=== PATIENT | female | born 1955 | race Hispanic/Latino ===

== ENCOUNTER → 2020-04-10 | Outpatient (CLI) | payer OTHER | END | disposition home or self-care (01) | LOC: OIH 07:32 | PROVIDERS: ATTEND Internal Medicine | DX: M16.0 Bilateral primary osteoarthritis of hip (principal); M19.042 Primary osteoarthritis, left hand; M19.041 Primary osteoarthritis, right hand; M85.80 Other specified disorders of bone density and structure, unspecified site | CPT/HCPCS: 73521 ==

== ENCOUNTER 2022-05-05 07:33 | Emergency (ER) | payer OTHER ==
[~2022-05-05] VITALS: Ht 149.9 cm; Wt 73.5 kg
[2022-05-05] MEDS ORDERED: ONDANSETRON 4MG INJ ONE (07:57)
[2022-05-05 08:01] LABS: BASOPHILS % (AUTO) 0.5 % (0.0-5.0); EOSINOPHILS % (AUTO) 0.4 % (0.0-8.0); HEMATOCRIT 45.1 % (36-48); LYMPHOCYTES % (AUTO) 9.6 % (21.0-51.0); MEAN CORPUSCULAR HEMOGLOBIN 28.3 pg (27.0-33.0); MEAN CORPUSCULAR HGB CONC 31.7 g/dL (32.0-36.0); MEAN CORPUSCULAR VOLUME 89.1 fL (79-99); MONOCYTES % (AUTO) 6.1 % (3.0-13.0); NEUTROPHILS % (AUTO) 82.8 % (40.0-77.0); PLATELET COUNT (AUTO) 183 K/uL (130-400); RED BLOOD CELL COUNT(AUTO) 5.06 MIL/uL (4.00-5.50); RED CELL DISTRIBUTION WIDTH 13.6 % (11.0-15.5); WHITE BLOOD COUNT (AUTO) 9.6 K/uL (4.8-10.8)
[2022-05-05 08:18] LABS: ALANINE AMINOTRANSFERASE 25 U/L (12-78); ALBUMIN 4.1 g/dL (3.5-5.0); ASPARTATE AMINOTRANSFERASE 18 U/L (10-37); CARBON DIOXIDE 31 mmol/L (21-32); CHLORIDE 102 mmol/L (101-111); CREATININE 0.8 mg/dL (0.5-1.5); GLOMERULAR FILTR. RATE CALC 81 mL/min (>90); GLUCOSE,RANDOM 166 mg/dL (70-105); POTASSIUM 3.3 mmol/L (3.5-5.1); SODIUM SERUM 139 mmol/L (136-145); UREA NITROGEN, BLOOD 19 mg/dL (7-18)
[2022-05-05] MEDS ORDERED: KETOROLAC 30MG VIAL (30MG/ML) ONE (08:19)
[2022-05-05 08:21] LABS: BILIRUBIN,URINE NEGATIVE (NEGATIVE); COLOR,URINE YELLOW (YELLOW); GLUCOSE, URINE (UA) TRACE mg/dL (NEGATIVE); KETONES,URINE NEGATIVE (NEGATIVE); LEUKOCYTE ESTERASE ,URINE 250 Leu/uL (NEGATIVE); NITRATE,URINE NEGATIVE (NEGATIVE); OCCULT BLOOD,URINE LARGE (NEGATIVE); PH,URINE 5.5 (5.0-8.0); PROTEIN,URINE 100 mg/dL (NEGATIVE); UROBILINOGEN,URINE 0.2 mg/dL (0.2-1.0)
[2022-05-05 08:22] LABS: LIPASE < 50 U/L (114-286)
[2022-05-05] MEDS ORDERED: 0.9%NACL 1000ML 1,000 ML IV ONE (08:30)
[2022-05-05] MEDS ORDERED: KETOROLAC 30MG VIAL (30MG/ML) IVP ONE (08:30)
[2022-05-05 08:33] LABS: BACTERIA,URINE MOD /HPF (None Seen); CALCIUM OXALATE CRYSTALS,UR MOD /LPF (None Seen); MUCUS,URINE FEW LPF (None Seen); RBC,URINE TNTC /HPF (0-1); SQUAMOUS EPITHELIAL CELL,UR FEW /HPF (0-2); WBC,URINE 26-50 /HPF (0-1)
[2022-05-05 08:35] LABS: APPEARANCE,URINE HAZY (CLEAR)
[2022-05-05] MEDS ORDERED: LOSA1TAB37 PO (08:38)
[2022-05-05] MEDS ORDERED: SEMA0.253 SQ (08:38)
[2022-05-05] MEDS ORDERED: METF-526 PO (08:42)
[2022-05-05] MEDS ORDERED: HYDR200T4 PO (08:42)
[2022-05-05] MEDS ORDERED: CELE100C97 PO (08:42)
[2022-05-05] MEDS ORDERED: MV-M1TAB20 PO (08:42)
[2022-05-05 09:59] VITALS: BP 123/58
[2022-05-05] MEDS ORDERED: CEPH500B PO (10:13)
[2022-05-05] MEDS ORDERED: KETO10TA2 PO (10:13)
[2022-05-05] MEDS ORDERED: TAMS-1 PO (10:13)
== END 2022-05-05 10:27 | disposition home or self-care (01) ==
LOC: EDH 07:33
DX: N20.1 Calculus of ureter (principal); E11.9 Type 2 diabetes mellitus without complications; E78.00 Pure hypercholesterolemia, unspecified; I10 Essential (primary) hypertension; Z79.1 Long term (current) use of non-steroidal anti-inflammatories (NSAID); Z79.84 Long term (current) use of oral hypoglycemic drugs; Z79.899 Other long term (current) drug therapy; Z85.3 Personal history of malignant neoplasm of breast
CPT/HCPCS: 99285; 74176; 96374; 96361; 96375; 80053; 83690; 85025; 87077; 87088; 87186; 81001; 36415; J7030; J2405; J1885

== ENCOUNTER 2023-06-04 15:57 | Emergency (ER) | payer OTHER ==
[~2023-06-04] VITALS: Ht 147.3 cm; Wt 73.0 kg
[~2023-06-04 15:57] MED LIST: CELE-146 PO; CEPH500B PO; HYDR200T75 PO; KETO10TA2 PO; LOSA1TAB37 PO; METF-526 PO; MV-M1TAB20 PO; SEMA0.253 SQ; TAMS-1 PO
[2023-06-04 16:03] VITALS: BP 132/84; PULSE 86; RESP 18
[2023-06-04] MEDS: CYCLOBENZAPRINE HCL 10 MG TABLET PO ONE (17:39)
[2023-06-04] MEDS: KETOROLAC 60 MG VIAL (30MG/ML) IM ONE (17:48)
[2023-06-04] MEDS: ONDANSETRON ODT 4MG TAB ONE (17:50)
[2023-06-04] MEDS: ONDANSETRON ODT 4MG TAB SL ONE (17:50)
[2023-06-04] MEDS ORDERED: CYCL-309 PO (18:18)
[2023-06-04] MEDS ORDERED: IBUP-2077 PO (18:18)
== END 2023-06-04 19:09 | disposition home or self-care (01) ==
LOC: EDH 15:57
DX: S20.219A Contusion of unspecified front wall of thorax, initial encounter (principal); I10 Essential (primary) hypertension; E78.00 Pure hypercholesterolemia, unspecified; E11.9 Type 2 diabetes mellitus without complications; Z87.442 Personal history of urinary calculi; Z85.3 Personal history of malignant neoplasm of breast; V43.52XA Car driver injured in collision with other type car in traffic accident, initial encounter; Y93.89 Activity, other specified; Y92.89 Other specified places as the place of occurrence of the external cause; Y99.8 Other external cause status
CPT/HCPCS: 99283; 71045; 96372; J1885

== ENCOUNTER → 2024-10-25 | Outpatient (CLI) | payer OTHER ==
[~2024-10-25] MED LIST changes: +CYCL-309 PO; +IBUP-2077 PO; -TAMS-1 PO; +TAMS-55 PO
--- NOTE | 2024-10-27 13:43 | HMCIMG ---
CLINICAL INDICATION: Age-related osteoporosis without current pathological fracture COMPARISON: None available TECHNIQUE: Bone densitometry is performed of the lumbar spine and left hip. FINDINGS: Total BMD of lumbar spine is 0.847 g/cm2 with a T-score of -1.8 and Z-score is 0.2. Total BMD of left hip is 0.904 g/cm2 with a T-score of -0.4 and Z-score is 1.0. FRAX SCORE: The 10 year fracture risk for a major osteoporotic fracture and hip fracture 6% IMPRESSION: 1. Osteopenia lumbar spine and left hip 2. I would recommend follow-up in 13 months World Health Organization criteria for BMD interpretation classify patients as Normal (T-score at or above -1.0), Osteopenic (T-score between -1.0 and -2.5), or Osteoporotic (T-score at or below -2.5). FRAX SCORE: A. All treatment decisions require clinical judgment and consideration of individual patient factors, including patient preferences, comorbidities, previous drug use, risk factors not captured in the FRAX model (e.g., frailty, falls, vitamin D deficiency, increased bone turnover, interval significant decline in bone density) and possible asvmm-wg-lafe-estimation of fracture risk by FRAX. B. In addition, the NOF Guide recommends that FDA-approved medical therapies be considered in postmenopausal women and men age greater than or equal to 50 years with a: i. Hip or vertebral (clinical or morphometric) fracture. ii. T-score of less than or equal to -2.5 at the spine or hip. iii. Ten-year fracture probability by FRAX of greater than or equal to 3% for hip fracture of greater than or equal to 20% for major osteoporotic fracture.
== END | disposition home or self-care (01) ==
LOC: RAH 09:23
PROVIDERS: ATTEND Nurse Practitioner Family
DX: M81.0 Age-related osteoporosis without current pathological fracture (principal); M85.89 Other specified disorders of bone density and structure, multiple sites
CPT/HCPCS: 77080

== ENCOUNTER 2024-12-24 19:38 | Emergency (ER) | payer OTHER ==
[~2024-12-24] VITALS: Ht 149.9 cm; Wt 71.2 kg
--- NOTE | 2024-12-24 19:47 | NUR ---
WARM BLANKETS PROVIDED
--- NOTE | 2024-12-24 19:54 | NUR ---
REPORT TO GUERDA COLUNGA
--- NOTE | 2024-12-24 19:58 | EKG ---
[facility] Test Date: 2024-12-24 Test Time: 19:56:53 Pat Name: EVIN HOBBS Department: ED Room: Gender: F Acute Care Physician: [id number] : 1955 Requested By: KATRINA WILLIAMSON Order Number: [id number] Reading MD: Constantino Reyes Measurements Intervals Rumsey Rate: 66 P: 55 VA: 128 QRS: 59 QRSD: 96 T: 9 QT: 438 QTc: 461 Interpretive Statements Sinus rhythm No previous ECG available for comparison Electronically Signed On 12-25-2024 20:01:16 [employer]CH[employer] by Constantino Reyes Please click the below link to view image of tracing.
[2024-12-24 20:03] VITALS: BP 130/68; PULSE 102; RESP 18; TEMP 98.4; O2SAT 97
[2024-12-24] MEDS: FAMOTIDINE 20MG VIAL IV ONE (20:17)
[2024-12-24 20:19] LABS: IMMATURE GRANULOCYTE ABSOLUTE 0.04 K/uL (0-1); NUCLEATED RED BLOOD CELLS 0.0 % (0.0-0.19); PLATELET COUNT (AUTO) 216 K/uL (130-400); RED BLOOD CELL COUNT(AUTO) 4.92 MIL/uL (4.00-5.50); RED CELL DISTRIBUTION WIDTH 13.6 % (11.0-15.5); WHITE BLOOD COUNT (AUTO) 9.2 K/uL (4.8-10.8)
--- NOTE | 2024-12-24 20:30 | ERN ---
General Chief Complaint: Abdominal Pain Stated Complaint: ABD PAIN Time Seen by MD: 19:45 Time Seen by Midlevel: 19:45 Source: patient History of Present Illness Initial Comments 69-year-old female presents to the emergency department with the nausea and vomiting that started 2 hours after eating. On arrival she now reports midepigastric abdominal pain that radiates to her back Allergies: Coded Allergies: No Known Drug Allergies (Unverified Allergy, Unknown, 05/05/22) Home Meds Active Scripts Ibuprofen (Ibuprofen 800 mg Tab) 800 Mg Tab, 800 MG PO Q8H PRN for fever or pain, #30 TAB 0 Refills Prov:YAJAIRA MONTOYA INFORMATION SECURITY ARCHITECT 06/04/23 Cyclobenzaprine HCl (Cyclobenzaprine HCl) 10 Mg Tablet, 10 MG PO TID for 5 Days, #15 TAB Prov:YAJAIRA MONTOYA INFORMATION SECURITY ARCHITECT 06/04/23 Cephalexin Monohydrate (Keflex) 500 Mg Cap, 500 MG PO BID for 7 Days, #14 CAP Prov:CASANDRA NARAYAN MD 05/05/22 Ketorolac Tromethamine (Ketorolac Tromethamine) 10 Mg Tablet, 10 MG PO TID PRN for PAIN LEVEL 1 TO 5 for 5 Days, #15 TAB Prov:CASANDRA NARAYAN MD 05/05/22 Tamsulosin HCl (Flomax) 0.4 Mg Cap.er.24h, 0.4 MG PO DAILY for 7 Days, #7 CAPSULE.DR Prov:CASANDRA NARAYAN MD 05/05/22 Reported Medications Celecoxib (Celecoxib) 100 Mg Capsule, 100 MG PO DAILY, CAP 05/05/22 Mv-Mn/Iron/FA/Herbal Cmplx#190 (Vitamin D3 Complete Caplet) 1 Each Tablet, 1 EACH PO DAILY, TAB 05/05/22 Hydroxychloroquine Sulfate (Hydroxychloroquine Sulfate) 200 Mg Tablet, 200 MG PO BID, TAB 05/05/22 Metformin HCl (Metformin HCl ER) 500 Mg Tab.er.24, 500 MG PO DAILY 05/05/22 Losartan/Hydrochlorothiazide (Losartan-Hctz 50-12.5 mg Tab) 1 Each Tablet, 1 EACH PO DAILY, TAB 05/05/22 Semaglutide (Wegovy) 0.25 Mg/0.5 Ml Pen.injctr, 0.25 MG SQ DAILY 05/05/22 Past Medical History Past Medical History: Cancer, Diabetes-Type II, High Cholesterol, Hypertension, Kidney Stone, Other Medical History Other: BREAST CA, RA Past Surgical History: Hysterectomy, Surgical History Other: PARTIAL LEFT MASTECTOMY Female( History) History: Not Applicable ROS Dictation CONSTITUTIONAL: Negative except for HPI HEAD/FACE: Negative except for HPI EENT: Negative except for HPI RESPIRATORY: Negative except for HPI GASTROINTESTINAL/ABDOMINAL: Negative except for HPI GENITOURINARY: Negative except for HPI MUSCULOSKELETAL: Negative except for HPI INTEGUMENTARY: Negative except for HPI NEUROLOGICAL/PSYCH: Negative except for HPI HEMATOLOGIC/LYMPHATIC: Negative except for HPI All Systems Negative, Except as noted above. 13 point review of systems assessed and all negative except for above. Physical Exam Physical Exam Dictation Vital Signs reviewed General Appearance: Alert, oriented x 3, mild distress secondary to abdominal pain, actively vomiting Head and Face: non-traumatic. Eyes: PERRL, pink conjunctivas, eyelid no trauma, anterior chamber with arcus senilis. Ears: Pinnas intact and no signs of trauma or erythema ear canals clear and no discharge TM no erythema Nose: No discharge, no bleeding. Oropharynx: Mouth normal, tongue pink, pharynx clear,no erythema, tonsils no exudates, no abscesses noted, mucous membrane moist Neck: Supple, non-tender, no thyromegaly, no masses, no JVD, no bruits Breast:Deferred Chest:No tenderness, no crepitus, no paradoxical movement, no retractions Lungs:Clear, well-ventilated, symmetric, no rales, no wheezing, no rhonchi, no stridor, good breath sounds bilaterally Heart: Regular rate, regular rhythm, no murmur, no gallops Vascular: no peripheral edema, Abdomen: Soft, positive bowel sounds, nondistended, no guarding, Midepigastric abdominal tenderness, no rebound, no masses no hepatomegaly, no splenomegaly, no Don's sign, no hernias. Rectal: Deferred Genital: Deferred Neurological: Normal speech, motor function intact, sensory function intact Musculoskeletal: Neck nontender, full range of motion, back nontender, full range of motion, Extremities: nontender, full range of motion Skin: Color pink, dry, no turgor, no rash, no lacerations, no abrasions, no contusions. Lymphatic: Deferred Results Laboratory and Microbiology Lab and Micro Result Laboratory Tests Test 12/24/24 20:13 12/24/24 20:50 White Blood Count 9.2 K/uL (4.8-10.8) Red Blood Count 4.92 MIL/uL (4.00-5.50) Hemoglobin 13.9 g/dL (12.0-16.0) Hematocrit 43.5 % (36-48) Mean Corpuscular Volume 88.4 fL (79-99) Mean Corpuscular Hemoglobin 28.3 pg (27.0-33.0) Mean Corpuscular Hemoglobin Concent 32.0 g/dL (32.0-36.0) Red Cell Distribution Width 13.6 % (11.0-15.5) Platelet Count 216 K/uL (130-400) Mean Platelet Volume 10.5 fL (7.5-10.5) Immature Granulocyte % (Auto) 0.4 % (0-1) Neutrophils (%) (Auto) 83.3 % (40.0-77.0) H Lymphocytes (%) (Auto) 9.0 % (21.0-51.0) L Monocytes (%) (Auto) 6.5 % (3.0-13.0) Eosinophils (%) (Auto) 0.5 % (0.0-8.0) Basophils (%) (Auto) 0.3 % (0.0-5.0) Neutrophils # (Auto) 7.6 K/uL (1.8-7.7) Lymphocytes # (Auto) 0.8 K/uL (1.0-4.8) L Monocytes # (Auto) 0.6 K/uL (0.1-1.0) Eosinophils # (Auto) 0.05 K/uL (0.00-0.70) Basophils # (Auto) 0.03 K/uL (0.00-0.20) Absolute Immature Granulocyte (auto 0.04 K/uL (0-1) Nucleated Red Blood Cells 0.0 % (0.0-0.19) White Cell Morphology Comment See comments Sodium Level 139 mmol/L (136-145) Potassium Level 3.2 mmol/L (3.5-5.1) L Chloride Level 102 mmol/L (101-111) Carbon Dioxide Level 27 mmol/L (21-32) Blood Urea Nitrogen 31 mg/dL (7-18) H Creatinine 0.9 mg/dL (0.5-1.0) Glomerular Filtration Rate Calc 69 mL/min (>90) Random Glucose 166 mg/dL (70-105) H Total Calcium 8.9 mg/dL (8.5-10.1) Total Bilirubin 0.4 mg/dL (0.2-1.0) Direct Bilirubin 0.1 mg/dL (0.0-0.3) Aspartate Amino Transf (AST/SGOT) 19 U/L (10-37) Alanine Aminotransferase (ALT/SGPT) 21 U/L (12-78) Alkaline Phosphatase 78 U/L (50-136) Troponin I High Sensitivity 7 ng/L (4-50) Total Protein 6.8 g/dL (6.0-8.3) Albumin 3.9 g/dL (3.5-5.0) Lipase 19 U/L (16-77) Urine Color LIGHT-YELLOW (YELLOW) Urine Appearance CLEAR (CLEAR) Urine pH 6.5 (5.0-8.0) Urine Specific [place] 1.022 (1.001-1.031) Urine Protein NEGATIVE mg/dL (NEGATIVE) Urine Glucose (UA) 200 mg/dL (NEGATIVE) H Urine Ketones 60 mg/dL (NEGATIVE) H Urine Occult Blood NEGATIVE (NEGATIVE) Urine Nitrate NEGATIVE (NEGATIVE) Urine Bilirubin NEGATIVE mg/dL (NEGATIVE) Urine Urobilinogen 0.2 mg/dL (0.2-1.0) Urine Leukocyte Esterase 75 Joanie/uL (NEGATIVE) H Urine RBC 6-10 /HPF (0-1) H Urine WBC 6-10 /HPF (0-1) H Urine Squamous Epithelial Cells RARE /HPF (0-2) Urine Bacteria RARE /HPF (None Seen) Labs Reviewed?: Yes MDM MDM: Differential diagnosis: Biliary colic, acute cholecystitis, pancreatitis There are no social concerns with this patient. Prescription drug management Prescriptions will include: Zofran, Pepcid, Toradol Medical management and examination interpretation discussions were had by me with other qualified healthcare professionals as indicated for the patient's care. ED Course Orders Procedure Category Date Status Time Vital Signs Per CPOE 12/24/24 Transmitted Routine 19:49 Saline Lock Iv CPOE 12/24/24 Transmitted 19:49 Cbc With Differential LAB 11/15/25 Complete 19:49 Lipase LAB 12/24/24 Complete 19:49 Urinalysis Profile LAB 12/24/24 Complete 19:49 12 Lead Ekg Tracing- EKG 12/24/24 Complete Technical 19:49 Troponin I High LAB 12/24/24 Complete Sensitivity 19:49 Basic Metabolic Panel LAB 12/24/24 Complete 19:49 Hepatic Function Panel LAB 12/24/24 Complete 19:59 Ondansetron 4mg Inj PHA 12/24/24 Complete (Zofran 4mg Inj) 20:00 Famotidine 20mg Vial PHA 12/24/24 Complete (Pepcid 20mg Vial) 20:00 Ct Abdomen/Pelvis CT 12/24/24 Resulted W/Contrast 19:59 Morphine 2mg Syg PHA 12/24/24 Complete (Morphine 2mg Syg) 20:30 Culture Urine REEMA 12/24/24 In Process 21:04 Iohexol (Omnipaque) PHA 12/24/24 Complete 21:21 Ketorolac PHA 12/24/24 Complete Tromethamine 15mg/Ml 23:00 Us Abdominal Ruq\Ltd US 12/24/24 Taken 22:38 Ketorolac PHA 12/24/24 Complete Tromethamine 15mg/Ml 22:40 Current Medications Medications (Trade) Dose Ordered Sig/Rico Route PRN Reason Start Time Stop Time Status Last Admin Dose Admin Famotidine (Pepcid 20mg Vial) 20 mg ONCE ONCE IV 12/24/24 20:00 12/24/24 20:02 DC 12/24/24 20:17 Iohexol (Omnipaque) 75 ml STK-MED ONCE IV 12/24/24 21:21 12/24/24 21:21 DC Ketorolac Tromethamine (toRADol) 15 mg ONCE ONCE IV 12/24/24 23:00 12/24/24 23:01 DC 12/24/24 22:54 Ketorolac Tromethamine (toRADol) 15 mg STK-MED ONCE .ROUTE 12/24/24 22:40 12/24/24 22:41 DC Morphine Sulfate (morPHINE 2MG SYG) 2 mg ONCE ONCE IVP 12/24/24 20:30 12/24/24 20:32 DC 12/24/24 20:48 Ondansetron HCl (zoFRAN 4MG INJ) 4 mg ONCE ONCE IVP 12/24/24 20:00 12/24/24 20:02 DC 12/24/24 20:17 Vital Signs Date Time Temp Pulse Resp B/P (MAP) Pulse Ox O2 Delivery O2 Flow Rate FiO2 12/24/24 20:03 98.4 102 18 130/68 97 Room Air* 0 21 12/24/24 19:41 98.8 64 18 158/68 100 Room Air DX & DISP Disposition: Discharge Departure Impression: Primary Impression: Biliary colic Condition: Stable Scripts Famotidine (Pepcid) 20 Mg Tablet 1 TAB PO BID for 10 Days, #20 TAB 0 Refills Prov: GUERDA KRAUS PAC 12/25/24 Ondansetron (Ondansetron Odt) 4 Mg Tab.rapdis 4 MG PO BID for 7 Days, #14 TAB Prov: GUERDA KRAUS 12/25/24 Ketorolac Tromethamine (Ketorolac Tromethamine) 10 Mg Tablet 1 TAB PO BID for pain for 5 Days, #10 TAB 0 Refills Prov: GUERDA KRAUS 12/25/24 Referrals: JONNY BAE (PCP) KIMBERLY GALAVIZ MD Time of Disposition: 00:01 I have reviewed the case, and I agree with, Diagnosis and Plan I performed the substantive portion of the visit. I have reviewed and per sonally made and approve the management plan that is documented in the note by myself or the RENAE. I acknowledge for responsibility for the patient's management plan. GUERDA KRAUS PAC Dec 24, 2024 20:30
[2024-12-24 20:31] LABS: CREATININE 0.9 mg/dL (0.5-1.0); GLOMERULAR FILTR. RATE CALC 69.0 mL/min (>90); GLUCOSE,RANDOM 166.0 mg/dL (70-105); SODIUM SERUM 139.0 mmol/L (136-145); UREA NITROGEN, BLOOD 31.0 mg/dL (7-18)
[2024-12-24 20:59] LABS: ASPARTATE AMINOTRANSFERASE 19.0 U/L (10-37); TOTAL PROTEIN, SERUM 6.8 g/dL (6.0-8.3)
[2024-12-24 21:02] LABS: ADD UA MICROSCOPIC YES; APPEARANCE,URINE CLEAR (CLEAR); GLUCOSE, URINE (UA) 200 mg/dL (NEGATIVE); LEUKOCYTE ESTERASE ,URINE 75 Leu/uL (NEGATIVE); NITRATE,URINE NEGATIVE (NEGATIVE); OCCULT BLOOD,URINE NEGATIVE (NEGATIVE)
[2024-12-24 21:04] LABS: SQUAMOUS EPITHELIAL CELL,UR RARE /HPF (0-2)
[2024-12-24] MEDS ORDERED: IOHEXOL-350 75 ML VIAL IV ONE (21:21)
--- NOTE | 2024-12-24 22:22 | HMCIMG ---
EXAM: CT Abdomen and Pelvis with IV contrast. CLINICAL HISTORY: Mid-epigastric abdominal pain with nausea and vomiting. TECHNIQUE: Axial computed tomography images of the abdomen and pelvis with intravenous contrast. CONTRAST: Omnipaque 350. COMPARISON: None provided. FINDINGS: LUNG BASES: Bibasilar dependent atelectasis. No pleural effusions. LIVER: Unremarkable. GALLBLADDER AND BILE DUCTS: The gallbladder is mildly overdistended. No radioopaque gallstones. No biliary ductal dilatation. PANCREAS: Unremarkable. SPLEEN: Unremarkable. ADRENAL GLANDS: Unremarkable. KIDNEYS, URETERS, AND BLADDER: The kidneys appear within normal limits. No hydronephrosis or hydroureter. No urinary calculi. The urinary bladder is incompletely distended. STOMACH AND BOWEL: Unremarkable appearance of the stomach and bowel. No bowel obstruction. No enteritis or colitis. APPENDIX: No evidence of acute appendicitis. PERITONEUM: No free fluid. No free air. LYMPH NODES: No lymphadenopathy. REPRODUCTIVE: The uterus is surgically absent. The remaining visualized structures are unremarkable. VASCULATURE: No abdominal aortic aneurysm. Mild atheromatous wall calcifications of the aorta. BONES: Mild multilevel degenerative changes in the spine. No aggressive osseous lesion. No acute osseous pathology. IMPRESSION: No acute intra-abdominal or pelvic abnormality. Mild multilevel degenerative changes in the spine. /Lund
[2024-12-25] MEDS ORDERED: KETO10TA2 PO (00:02)
[2024-12-25] MEDS ORDERED: ONDA-243 PO (00:02)
[2024-12-25] MEDS ORDERED: FAMO-136 PO (00:02)
--- NOTE | 2024-12-25 00:05 | HMCIMG ---
EXAM: US Abdomen, Right Upper Quadrant. CLINICAL HISTORY: RUQ PAIN. TECHNIQUE: Right upper quadrant sonography performed with image documentation. COMPARISON: None provided. FINDINGS: LIVER: Within normal limits in size and echogenicity. No mass. GALLBLADDER: The gallbladder appears normal. No gallbladder wall thickening seen(0.3 cm). There are a few calculi, the largest measuring 0.8 cm. No pericholecystic fluid. COMMON BILE DUCT: No dilation(0.3 cm). PANCREAS: The distal pancreas is obscured by bowel gas. The visualized portion of the pancreas appears within normal limits. RIGHT KIDNEY: Unremarkable. Normal renal contours. No renal mass or calculus. No hydronephrosis. IMPRESSION: Cholelithiasis without cholecystitis. Recommend CT for further evaluation if clinically warranted. /Donald
[2024-12-26] MEDS ORDERED: ATOR10 PO (22:23)
[2024-12-31] MEDS ORDERED: ONDA-243 PO (09:26)
[2024-12-31] MEDS ORDERED: KETO10TA2 PO (09:26)
== END 2024-12-25 00:37 | disposition home or self-care (01) ==
LOC: EDH 19:38
DX: K80.50 Calculus of bile duct without cholangitis or cholecystitis without obstruction (principal); R11.2 Nausea with vomiting, unspecified; E11.9 Type 2 diabetes mellitus without complications; E78.00 Pure hypercholesterolemia, unspecified; I10 Essential (primary) hypertension; Z79.1 Long term (current) use of non-steroidal anti-inflammatories (NSAID); Z79.84 Long term (current) use of oral hypoglycemic drugs; Z79.899 Other long term (current) drug therapy; Z85.3 Personal history of malignant neoplasm of breast; Z87.442 Personal history of urinary calculi; Z90.12 Acquired absence of left breast and nipple; Z90.710 Acquired absence of both cervix and uterus
CPT/HCPCS: 99285; 74177; 96374; 96375; 76705; 80076; 84484; 80048; 83690; 85025; 87086; 81001; 36415; 93005; 96376; J1885 ×2; J1308; J2270; J2405; Q9967